=== PATIENT | male | born 1985 | race African-American/Black ===

== ENCOUNTER 2022-05-14 04:36 | Emergency (ER) | payer SELFPAY ==
[~2022-05-14] VITALS: Ht 170.2 cm; Wt 68.2 kg
[2022-05-14 04:45] VITALS: BP 116/79; TEMP 98.3
[2022-05-14] MEDS ORDERED: DOXYCYCLINE 10100 MG PO (05:36)
[2022-05-14 06:19] VITALS: PULSE 16
[2022-05-14 06:19] LABS: COLLECTION METHOD CLEAN CATCH
[2022-05-14 06:35] LABS: URINE APPEARANCE Clear (CLEAR/HAZY); URINE BLOOD Negative (NEGATIVE); URINE COLOR Yellow (YELLOW); URINE GLUCOSE Negative (NEGATIVE); URINE KETONE Negative (NEGATIVE); URINE NITRATE Negative (NEGATIVE); URINE PROTEIN(semi-quant) Negative (NEGATIVE)
[2022-05-14 06:46] LABS: SQUAMOUS EPITHELIAL 0-2 /hpf (0-10); URINE BACTERIA Rare /hpf (NONE SEEN); URINE RBC None Seen /hpf (0-2)
== END 2022-05-14 06:19 | disposition home or self-care (01) ==
LOC: COL.ER 04:36
PROVIDERS: Emergency Medicine
DX: Z20.2 Contact with and (suspected) exposure to infections with a predominantly sexual mode of transmission (principal); F17.210 Nicotine dependence, cigarettes, uncomplicated; Z28.310 Unvaccinated for COVID-19
CPT/HCPCS: 86780; J0561; J0696